=== PATIENT | male | born 1965 | race Hispanic/Latino ===

== ENCOUNTER 2018-10-10 10:50 | Emergency (ER) | payer MEDICAID ==
[2018-10-10 11:15] VITALS: BP 129/66
[2018-10-10] MEDS ORDERED: ASPIRIN PO ONE (11:18)
--- NOTE | 2018-10-10 11:20 | Emergency Department Report ---
Chief Complaint: Chest Pain Stated Complaint: CHEST/ABD PAIN Time Seen by Provider: 10/10/18 11:14 - HPI History of Present Illness: This is a 52 y.o. male presents with SOB and chest discomfort x 72 hours. History of asthma. Patient out of inhaler for months. - ROS Review of Systems: cough, SOB, and chest discomfort - Exam Vital Signs: Vital Signs 10/10/18 11:12 Temperature 97.8 F Pulse Rate 56 L Respiratory 16 Rate Blood Pressure 129/66 O2 Sat by Pulse 97 Oximetry MSE screening note: Focused history and physical exam performed. Due to findings the following was ordered: CXR and labs ED Disposition for MSE Condition: Stable
--- NOTE | 2018-10-10 12:34 | XRay Report ---
AP CHEST: HISTORY: chest pain AP view of the chest demonstrates a normal mediastinal and cardiac contour with clear lungs and normal bony and soft tissue structures. IMPRESSION: Unremarkable AP chest.
== END 2018-10-10 13:56 ==
LOC: ED 10:50
DX: R07.89 Other chest pain (principal); Z53.21 Procedure and treatment not carried out due to patient leaving prior to being seen by health care provider
CPT/HCPCS: 71045; 93005; 93010